=== PATIENT | male | born 1980 | race Caucasian/White ===

== ENCOUNTER 2016-05-20 17:46 | Emergency (ER) | payer OTHER | END 2016-05-20 20:00 | disposition home or self-care (01) | LOC: ER 17:46 | DX: R10.9 Unspecified abdominal pain (principal); F17.210 Nicotine dependence, cigarettes, uncomplicated; Z79.899 Other long term (current) drug therapy | CPT/HCPCS: 96374; 96375; 96376; J1885 ==

== ENCOUNTER 2016-07-31 16:02 | Emergency (ER) | payer OTHER | END 2016-07-31 16:41 | disposition home or self-care (01) | LOC: ER 16:02 | DX: M54.2 Cervicalgia (principal); M25.511 Pain in right shoulder; M25.512 Pain in left shoulder; K21.9 Gastro-esophageal reflux disease without esophagitis; F17.210 Nicotine dependence, cigarettes, uncomplicated; Z79.899 Other long term (current) drug therapy ==